=== PATIENT | female | born 1965 | race African-American/Black ===

== ENCOUNTER → 2017-02-17 | Outpatient (CLI) | payer MEDICARE, OTHER ==
[~2017-02-17] MED LIST: FLUT1INH INH; FLUT50SP EACH NARE; HYDR12.57 PO; LISI-515 PO; METR500T10 PO; NAPR500T PO
[2017-02-17 10:02] LABS: BASOPHIL % 0.3 % (0.0-2.0); EOSINOPHIL % 0.8 % (0.0-4.0); HEMATOCRIT 37.2 % (35.0-46.0); HEMO FLAGS DIFF FINAL; LYMPH % 37.2 % (9.0-44.0); LYMPHOCYTE # 1.4 TH/MM3 (1.0-4.8); MEAN CELL VOLUME 93.3 FL (80.0-100.0); MEAN CORPUSCULAR HEMOGLOBIN 31.7 PG (27.0-34.0); MEAN CORPUSCULAR HGB CONC 33.9 % (32.0-36.0); NEUT % 52.7 % (16.0-70.0); PLATELET COUNT 267 TH/MM3 (150-450); RED BLOOD COUNT 3.98 MIL/MM3 (4.00-5.30); RED CELL DISTRIBUTION WIDTH 12.9 % (11.6-17.2); WHITE BLOOD COUNT 3.7 TH/MM3 (4.0-11.0)
[2017-02-17 10:33] LABS: BICARBONATE 27.2 MEQ/L (21.0-32.0); POTASSIUM 3.8 MEQ/L (3.5-5.1)
[2017-02-17 10:34] LABS: RHEUMATOID FACTOR TRIGGER LESS THAN 10.0 IU/ML (0.0-14.9)
== END ==
LOC: CLAB 09:32
PROVIDERS: ATTEND Family Medicine
DX: I10 Essential (primary) hypertension (principal); M25.50 Pain in unspecified joint; E66.9 Obesity, unspecified
CPT/HCPCS: 36415; 80048; 84443; 85025; 86038; 86200; 86430

== ENCOUNTER 2017-05-09 12:43 | Emergency (ER) | payer MEDICARE, MEDICAID ==
[~2017-05-09] VITALS: Ht 152.4 cm; Wt 90.0 kg
[~2017-05-09 12:43] MED LIST changes: +METR-1 PO; -METR500T10 PO
[2017-05-09 12:45] VITALS: BP 167/85; PULSE 127; RESP 20; TEMP 98.2; O2SAT 99
--- NOTE | 2017-05-09 12:54 | PD ---
Physical Exam Time Seen by Provider: 12:54 Narrative 51 y/o female complaining of nausea, a funny feeling in her throat and difficulty breathing. She is also c/o abdominal/L flank pain for the past 2 weeks, worse for [address] Vazquez, she reports she was told that she would undergo an outpatient ct abd/pelvis but this hasn't been performed yet. Vital signs reviewed. Seen at triage desk. Awaiting bed placement. Data Data Last Documented VS Vital Signs Date Time Temp Pulse Resp B/P Pulse Ox O2 Delivery O2 Flow Rate FiO2 05/09/17 12:45 98.2 127 20 167/85 99 MDM Medical Record Reviewed: Yes Supervised Visit with MIGUELANGEL: No Jordon Luque May 09, 2017 12:54
--- NOTE | 2017-05-09 13:51 | PD ---
HPI Chief Complaint: Respiratory Symptoms Time Seen by Provider: 13:27 Travel History International Travel<30 days: No Contact w/Intl Traveler<30days: No Traveled to known affect area: No History of Present Illness HPI Patient is a 51-year-old female presents multiple complaints, chief complaint is that when she takes a new asthma medication her throat feels very sore and her abdomen becomes cramping and nauseous. Patient states the numbness only for the past few weeks as her doctor diagnosed her with asthma recently. She states her shortness of breath is fairly well-controlled. Denies any nausea or vomiting diarrhea or constipation at this time. She states really she only wants to be evaluated for sore throat time. States symptoms started a few minutes after the medicine is given to her. She states that sometimes it feels like his heart swallow as well as. PFSH Past Medical History Anxiety: Yes Cardiovascular Problems: Yes (murmur) High Cholesterol: Yes Diminished Hearing: No Genitourinary: Yes Hypertension: Yes Kidney Stones: Yes Respiratory: Yes Sleep Apnea: Yes Tetanus Vaccination: > 5 Years Influenza Vaccination: No ?: Not : 4 Para: 4 Tubal Ligation: Yes Past Surgical History Gynecologic Surgery: Yes Hysterectomy: Yes (partial) Social History Alcohol Use: No Tobacco Use: No Substance Use: No Allergies-Medications (Allergen,Severity, Reaction): Coded Allergies: Penicillin (Verified Adverse Reaction, Mild, hives, 05/09/17) Hives all over Reported Meds & Prescriptions Reported Meds & Active Scripts Active Fluticasone Nasal [place] 50 Mcg/Act Naspr 100 Mcg EACH NARE BID 50 mcg/spray Hydrochlorothiazide 12.5 Mg Cap 12.5 Mg PO DAILY Lisinopril 20 Mg Tab 20 Mg PO DAILY Reported Breo Ellipta Inh (Fluticasone/Vilanterol) 100-25 Mcg/Act Inh 1 Puff INH DAILY Use daily at the same time. Review of Systems Except as stated in HPI: all other systems reviewed are Neg Physical Exam Narrative GENERAL: Well-nourished, well-developed patient. SKIN: Focused skin assessment warm/dry. HEAD: Normocephalic. EYES: No scleral icterus. No injection or drainage. ENT: Oropharynx clear and moist, TMs clear, neck is supple, no tenderness on swallowing at this time. NECK: Supple, trachea midline. No JVD or lymphadenopathy. CARDIOVASCULAR: Regular rate and rhythm without murmurs, gallops, or rubs. RESPIRATORY: Breath sounds equal bilaterally. No accessory muscle use. GASTROINTESTINAL: Abdomen soft, non-tender, nondistended. MUSCULOSKELETAL: No cyanosis, or edema. BACK: Nontender without obvious deformity. No CVA tenderness. Data Data Last Documented VS Vital Signs Date Time Temp Pulse Resp B/P Pulse Ox O2 Delivery O2 Flow Rate FiO2 05/09/17 14:29 91 19 109/62 98 05/09/17 12:45 98.2 [facility] Medical Decision Making Medical Screen Exam Complete: Yes Emergency Medical Condition: Yes Differential Diagnosis Medication reaction, pharyngitis, nausea, vomiting. Narrative Course Patient roomed emergency department, she appears well and in no distress. Is no indication for advanced workup at this time. Recommend a trial off her medication and discuss with her primary care physician as soon as possible for alternatives. Discussed return to ED criteria. She stable for discharge. Diagnosis Primary Impression: Sore throat Additional Instructions: Call Dr. Vazquez today for further instructions. If you're belly pain becomes severe you can return to the emergency department. Disposition: 01 DISCHARGE HOME Condition: Stable David Rodríguez MD May 09, 2017 13:51
[2017-05-09 14:29] VITALS: BP 109/62
== END 2017-05-09 14:30 | disposition home or self-care (01) ==
LOC: NEPD 12:43
DX: R07.0 Pain in throat (principal); R11.0 Nausea; I10 Essential (primary) hypertension; E78.00 Pure hypercholesterolemia, unspecified; G47.30 Sleep apnea, unspecified; Z86.59 Personal history of other mental and behavioral disorders; Z86.79 Personal history of other diseases of the circulatory system; Z87.448 Personal history of other diseases of urinary system; Z87.09 Personal history of other diseases of the respiratory system
CPT/HCPCS: 99282

== ENCOUNTER → 2017-05-26 | Outpatient (CLI) | payer MEDICARE, MEDICAID ==
[~2017-05-26] MED LIST changes: +ALBUAER3 INH; +ALPR0.25 PO; +LISI10TA3 PO; -METR-1 PO; -NAPR500T PO; +POTA10TA2 PO; +SERT25TA83 PO; +TAMS0.4C4 PO
[2017-05-26 13:57] LABS: BICARBONATE 27.2 MEQ/L (21.0-32.0); POTASSIUM 3.4 MEQ/L (3.5-5.1)
== END ==
LOC: CLAB 12:41
PROVIDERS: ATTEND Family Medicine
DX: N20.0 Calculus of kidney (principal)
CPT/HCPCS: 36415; 80048; 84560; G0463; 99213

== ENCOUNTER 2018-08-21 04:43 | Observation (INO) ==
--- NOTE | 2018-08-21 06:04 | ED ---
HPI General Chief complaint: Extremity Injury, Upper Stated complaint: rt elbow pain Time Seen by Provider: 08/21/18 05:40 History of Present Illness HPI narrative: Patient is a 52 yo female presenting with right arm pain. Patient reports that when she was trying to go to sleep she noticed a sudden achy pain in her right elbow with radiation to her right hand and shoulder. She denies known injury to the elbow. At this time she also was experiencing some right chest pressure but denies SOB. She became concerned about her heart prompting her to seek evaluation. Patient reports that sense arriving at ED the arm pain and chest pain has completely resolved. Additionally she reports feeling bloated, a single episode of emesis, and frequent belching. She reports she has been told she had a heart murmur in the past but denies any other significant cardiac history. Related Data Home Medications Medication Instructions Recorded Confirmed hydrochlorothiazide 12.5 mg PO DAILY 05/25/18 08/21/18 potassium chloride 10 meq PO DAILY 05/25/18 08/21/18 Allergies Allergy/AdvReac Type Severity Reaction Status Date / Time penicillin G AdvReac Mild hives Verified 05/25/18 16:58 Review of Systems Constitutional Denies fever(s) Eyes Denies change in vision ENT Denies headache(s) and Denies nasal congestion Cardiovascular Reports as per HPI and Reports chest pain Respiratory Denies dyspnea Gastrointestinal Denies abdominal pain, Reports belching, Reports bloating, Reports dyspepsia and Reports vomiting Genitourinary Denies difficulty voiding Musculoskeletal Denies myalgias Integumentary/Breasts Denies rash Neurologic Denies headache(s) Psychiatric Denies depression Endocrine Denies polyuria Hematologic/Lymphatic Denies easy bruising PMFSH Medical History Medical History Arthritis (Acute) CHF (congestive heart failure) (Acute) H/O: hysterectomy (Acute) Hypertension (Acute) Sleep apnea (Acute) Surgical History Surgical History H/O tubal ligation (Acute) Social History Social History Substance History: No History of Abuse Second Hand Smoke Exposure: No Smoking Status: Never smoker How Often Do You Have a Drink Containing Alcohol: Never Recent Travel in [facility] within the Last 8 Weeks: No Recent Out of Country Travel within the Last 8 Weeks: No Immunization History Tetanus Immunization: >5 Years Exam Const General: cooperative, comfortable and well developed Nutritional Appearance: well nourished and obese Orientation: alert, awake and oriented x3 HENMT Head: normocephalic and atraumatic Nose: no nasal discharge and no epistaxis Mouth: moist mucous membranes Eyes Sclera: normal sclerae Pupils: PERRL Neck Neck: trachea midline and no JVD Chest Chest: normal palpation of entire chest wall Resp Effort & Inspection: no use of accessory muscles Auscultation: clear to auscultation bilaterally Cardio Rate: regular rate Rhythm: regular rhythm Heart Sounds: no murmurs GI Inspection: non-distended Palpation: soft, no hepatosplenomegaly and nontender Back/Spine/Pelvis Back: no CVA tenderness Skin General: dry skin (warm) Neuro General: alert, awake, oriented x3 and other (Grossly nonfocal.) Speech: speech normal Motor: no movement abnormalities noted Extrem General: normal to inspection, no clubbing, no cyanosis and no edema Psych Mood: congruent mood Affect: normal affect Judgment: judgment good Course Initial Documented Vital Signs Temperature 98.9 F 08/21/18 04:49 Pulse Rate 75 08/21/18 04:49 Respiratory Rate 16 08/21/18 04:49 Blood Pressure 167/84 H 08/21/18 04:49 Pulse Oximetry 98 08/21/18 04:49 Last Documented Vital Signs Temperature 98.9 F 08/21/18 04:49 Pulse Rate 73 08/21/18 06:05 Respiratory Rate 17 08/21/18 06:05 Blood Pressure 159/82 H 08/21/18 06:05 Pulse Oximetry 99 08/21/18 06:05 Medical Decision Making MDM Narrative Medical decision making narrative: I, Dr. Garduno, have reviewed the medical student's documentation, and I am in agreement, met with the patient face to face, made the diagnosis, and the medical decision making was done by me. The patient was initially evaluated by Nicole, the MSIV. Please see their complete history and physical. *My assessment and Findings: The patient presents with a history of awakening at 3:30 AM and at that time noticing she had right arm pain. Patient reports that she attempted to lie back down and then also noted that she was having the chest pain in the right side of her chest. She reports shortly before this she began to have belching. She reports that she took her ranitidine, however she vomited this up. The patient reports that she was concerned that the pain was persisting, therefore she came to the emergency department for evaluation and treatment. The patient reports a history of high blood pressure. She reports that she has had a stress test in the past, approximately 2 years ago. She denies any prior history of coronary artery disease. During the course of the patient's emergency department visit, the patient's history, examination, and differential diagnosis were reviewed with the patient. The patient was placed on a property assessment monitor with oximetry and frequent blood pressure monitoring. The patient had IV access obtained and blood work sent for analysis. The patient was initially provided Aspirin 324mg and nitroglycerin 1 inch the chest wall. The patient's diagnostic studies were reviewed and remarkable for a CBC that shows a white count of 4.4, hemoglobin 13, platelets 246 with monocytes 9.2, PT PTT within normal limits, chemistry is remarkable for The patient's chest x-ray showed no evidence of acute cardiopulmonary disease. The patient's results were discussed with the patient, including the plan of care. I explained that further testing and/ or monitoring is indicated based on the patient's history, examination, and/ or laboratory findings. Therefore, I recommended admission for additional evaluation. The patient expressed understanding and was agreeable with this plan. The patient was admitted to the hospital in stable condition and sent to a bed under the care of the [facility]. Medical Screen Exam Complete: Yes Emergency Medical Condition: Yes Differential Diagnosis Differential Diagnosis: acute coronary syndrome, GERD, arthritic pain, elbow contusion Medical Records Medical records reviewed: Yes I reviewed the patient's medical records. Lab Data Lab results reviewed: Yes I reviewed the patient's lab results. Result diagrams: 08/21/18 06:00 08/21/18 06:00 POC Results POC Urine Results Negative Lab Results 08/21/18 08/21/18 Range/Units 06:00 06:00 WBC 4.4 (4.0-11.0) th/mm3 RBC 4.08 (4.00-5.30) mil/mm3 Hgb 13.0 (11.6-15.3) gm/dL Hct 38.8 (35.0-46.0) % MCV 95.0 (80.0-100.0) fL MCH 31.8 (27.0-34.0) pg MCHC 33.4 (32.0-36.0) % RDW 12.7 (11.6-17.2) % Plt Count 246 (150-450) th/mm3 MPV 7.5 (7.0-11.0) fL Neut % (Auto) 59.9 (16.0-70.0) % Lymph % (Auto) 30.2 (9.0-44.0) % [place] % (Auto) 9.2 H (0.0-8.0) % Eos % (Auto) 0.2 (0.0-4.0) % Baso % (Auto) 0.5 (0.0-2.0) % Neut # (Auto) 2.7 (1.8-7.7) th/mm3 Lymph # (Auto) 1.3 (1.0-4.8) th/mm3 [place] # (Auto) 0.4 (0.0-0.9) th/mm3 Eos # (Auto) 0.0 (0.0-0.4) th/mm3 Baso # (Auto) 0.0 (0.0-0.2) th/mm3 WBC Differential . Differential Comment Auto diff final PT 10.7 (9.8-11.6) sec INR 1.1 Ratio APTT 28.8 (23.4-31.7) sec Imaging Data Radiologist's impression: Chest X-Ray 08/21/18 05:40 CONCLUSION: No acute cardiopulmonary disease identified. ECG Data Attestation: I personally reviewed and interpreted this ECG as follows: Interpretation: The patient had a EKG done on arrival. The patient's EKG reveals a heart rate of 67, QRS duration 98 ms, QTC 413 ms. The patient has T waves that are inverted in lead III, aVF, V1. No acute ST segment elevation. Discharge Plan Discharge Disposition Patient Disposition: 30 Still Patient Discharge Details Diagnosis: Chest pain, rule out acute myocardial infarction Physicians Team ED Provider: Marcelle Garduno Rxs /Orders / Referrals /Forms Prescriptions: No Action potassium chloride 10 mEq Capsule, Extended Release 10 meq PO DAILY RF: 0 hydrochlorothiazide 12.5 mg Capsule 12.5 mg PO DAILY RF: 0 Status ED Status: With Doctor
[2018-08-21 06:13] LABS: Baso % (Auto) 0.5 % (0.0-2.0); Eos % (Auto) 0.2 % (0.0-4.0); Hematocrit 38.8 % (35.0-46.0); Lymph # (Auto) 1.3 th/mm3 (1.0-4.8); Lymph % (Auto) 30.2 % (9.0-44.0); Mean Corpuscular HGB Conc 33.4 % (32.0-36.0); Mean Corpuscular Hemoglobin 31.8 pg (27.0-34.0); Mean Platelet Volume 7.5 fL (7.0-11.0); Mono # (Auto) 0.4 th/mm3 (0.0-0.9); Mono % (Auto) 9.2 % (0.0-8.0); Neut # (Auto) 2.7 th/mm3 (1.8-7.7); Neut % (Auto) 59.9 % (16.0-70.0); Platelet Count 246 th/mm3 (150-450); Red Blood Count 4.08 mil/mm3 (4.00-5.30); Red Cell Distribution Width 12.7 % (11.6-17.2); White Blood Count 4.4 th/mm3 (4.0-11.0)
[2018-08-21 06:22] LABS: Activated Partial Thrombo Time 28.8 sec (23.4-31.7); INR 1.1 Ratio; Prothrombin Time 10.7 sec (9.8-11.6)
--- NOTE | 2018-08-21 06:22 | XR ---
EXAM DATE: 08/21/2018 6:09 AM EST AGE/SEX: 52 years / Female INDICATIONS: Shortness of breath. Right arm pain. CLINICAL DATA: This is the patient's initial encounter. Patient reports that signs and symptoms have been present for 1 day and indicates a pain score of 6/10. MEDICAL/SURGICAL HISTORY: Arthritis. Congestive heart failure. Hypertension. Sleep apnea. H ysterectomy. Tubal ligation. COMPARISON: No prior exams available for comparison. FINDINGS: Single AP view of the chest. The lungs are clear. Cardiomediastinal silhouette within nor mal limits. No evidence of pleural effusion or pneumothorax. CONCLUSION: No acute cardiopulmonary disease identified. Electronically signed by: Scott Amaral MD 08/21/2018 6:21 AM EST
[2018-08-21 06:47] LABS: Albumin 3.6 g/dL (3.4-5.0); Anion Gap 8 meq/L (5-15); Aspartate Aminotransferase 17 U/L (15-37); Blood Urea Nitrogen 16 mg/dL (7-18); Calcium 8.3 mg/dL (8.5-10.1); Carbon Dioxide 26.1 meq/L (21.0-32.0); Chloride 104 meq/L (98-107); Glomerular Filtration Rate Greater Than 89 mL/min (>89); Glucose,Random 104 mg/dL (74-106); Lipase 88 U/L (73-393); Magnesium 1.9 mg/dL (1.5-2.5); Potassium 3.5 meq/L (3.5-5.1); Sodium 138 meq/L (136-145)
[2018-08-21 06:48] LABS: Alanine Aminotransferase 16 U/L (10-53)
[2018-08-21 06:51] LABS: Alkaline Phosphatase 93 U/L (45-117); Creatine Kinase 192 U/L (26-192); Total Protein 7.9 g/dL (6.4-8.2)
[2018-08-21 07:04] LABS: Creatine Kinase MB 1.5 ng/mL (0.5-3.6)
--- NOTE | 2018-08-21 07:56 | P.HPCA ---
History of Present Illness Primary Care Physician: Family [facility] [place] [facility] Chief Complaint: Chest pain History of Present Illness: 52 year old female with history of GERD and sleep apnea presents emergency room for further evaluation of chest pain. Onset 3:30 AM. Discomfort began right shoulder to right elbow with radiation to right anterior chest. Described as aching. Moderate severity. Hurt to move and lay on right side. Associated symptoms including belching. Denied nausea, vomiting, dyspnea, or diaphoresis. Denies similar pain in the past. No relieving factors. Reports recent cardiac testing completed in [place] 3-4 months ago prior to moving to [place]. Is established with [facility] records of recent stress testing reviewed with her at last appointment. Reported to be normal. Past cardiac testing 10/17/2017 Echocardiogram Conclusions: 1. LVEF 60-65%. Normal wall motion. 2. Mild mitral regurgitation. 3. Mild to moderate tricuspid regurgitation. 4. Trivial aortic insufficiency. 5. Mild pulmonary hypertension with SVSP of 43. Social history No known coronary artery disease, diabetes, or hyperlipidemia. Reports history of hypertension in the past, although PCP stopped medication due to blood pressure becoming "too low." Lifelong non-smoker. Denies any alcohol or recreational drug use. Recently moved to [facility]. - Diagnosis (1) Atypical chest pain Review of Systems All other systems reviewed negative except as stated in [facility] - History History Provided By: Patient, Data Systems Analyst / EMT - Medical History Medical History: Medical History (Last Updated 08/21/18 @ 09:08 by CJ Garcia) Anemia H/O: hysterectomy Osteoarthritis Renal calculi Sleep apnea Arthritis CHF (congestive heart failure) Hypertension - Surgical History Surgical History: Surgical History (Last Reviewed 08/21/18 @ 08:28 by CJ Garcia) H/O tubal ligation - Social History I have reviewed the patient's Social History: Yes - Tobacco History Second Hand Smoke Exposure: No Tobacco Use In Past 30 Days: No Smoking Status: Never smoker - Alcohol History How Often Do You Have a Drink Containing Alcohol: Never - Substance Use History Substance History: No History of Abuse - Travel History History of Recent Travel: No Recent Travel in the [place] Within the Last 8 Weeks: No Recent Travel Out of the Country Within the Last 8 Weeks: No - Immunization History Tetanus Immunization: >5 Years Medications and Allergies Active Medications: Active Medications Sodium Chloride (Ns Flush) 2 ml IV.FLUSH UNSCH PRN PRN Reason: FLUSH AFTER USING IV ACCESS Sodium Chloride (Ns Flush) 2 ml IV.FLUSH BID CARLENE Sodium Chloride (Ns Flush) 2 ml IV.FLUSH PRN PRN PRN Reason: FLUSH AFTER USING IV ACCESS Allergies Allergy/AdvReac Type Severity Reaction Status Date / Time penicillin G AdvReac Mild hives Verified 05/25/18 16:58 Home Medications Medication Instructions Recorded Confirmed Type hydrochlorothiazide 12.5 mg PO DAILY 05/25/18 08/21/18 History potassium chloride 10 meq PO DAILY 05/25/18 08/21/18 History Exam Vital signs: Vital Signs 08/21/18 04:49 08/21/18 06:05 08/21/18 06:50 Temperature 98.9 F Pulse Rate 75 73 76 Respiratory Rate 16 17 16 Blood Pressure 167/84 H 159/82 H 133/72 Pulse Oximetry 98 99 100 08/21/18 07:22 Temperature Pulse Rate 83 Respiratory Rate 18 Blood Pressure 138/77 Pulse Oximetry 99 Intake & Output 08/20/18 08/21/18 08/21/18 18:59 06:59 18:59 Weight 90.265 kg Narrative: GENERAL: Alert WN, WD, NAD, extremely pleasant, obese, -[place] female HEAD: NC, AT EYES: Sclera clear, conjunctiva without injection, pupils equal and round ENT: Mucous membranes pink and moist NECK: Supple, no masses, trachea midline CV: RRR, without murmur, rub, gallop, no JVD, S1-S2. RESP: Clear lungs throughout bilateral, no crackles, wheeze, rhonchi, symmetrical chest rise, nonlabored, able to speak in full sentences ABD: Soft, NT, ND, no masses, positive bowel tones EXT: Pulses +2x4, no dependent edema MS: Normal tone x4 extremities, nontender, no obvious deformities, full range of motion NEURO: CN II through CN XII grossly intact, motor strength 5/5 PSYCH: A+O x3, pleasant affect, appropriate speech, appropriate mood, insight and judgment SKIN: Normal turgor, normal texture, no lesions, no rashes, brisk cap refill, even hair distribution Results 08/21/18 06:00 08/21/18 06:00 Cardiac Enzymes 08/21/18 Range/Units 06:00 AST 17 (15-37) U/L CK-MB (CK-2) 1.5 (0.5-3.6) ng/mL Troponin I Less than 0.02 L (0.02-0.05) ng/mL Coagulation 08/21/18 Range/Units 06:00 PT 10.7 (9.8-11.6) sec APTT 28.8 (23.4-31.7) sec CBC 08/21/18 Range/Units 06:00 WBC 4.4 (4.0-11.0) th/mm3 RBC 4.08 (4.00-5.30) mil/mm3 Hgb 13.0 (11.6-15.3) gm/dL Hct 38.8 (35.0-46.0) % Plt Count 246 (150-450) th/mm3 Neut # (Auto) 2.7 (1.8-7.7) th/mm3 Lymph # (Auto) 1.3 (1.0-4.8) th/mm3 [place] # (Auto) 0.4 (0.0-0.9) th/mm3 Eos # (Auto) 0.0 (0.0-0.4) th/mm3 Baso # (Auto) 0.0 (0.0-0.2) th/mm3 Comprehensive Metabolic Panel 08/21/18 Range/Units 06:00 Sodium 138 (136-145) meq/L Potassium 3.5 (3.5-5.1) meq/L Chloride 104 (98-107) meq/L Carbon Dioxide 26.1 (21.0-32.0) meq/L BUN 16 (7-18) mg/dL Creatinine 0.70 (0.50-1.00) mg/dL Calcium 8.3 L (8.5-10.1) mg/dL AST 17 (15-37) U/L ALT 16 (10-53) U/L Alkaline Phosphatase 93 (45-117) U/L Total Protein 7.9 (6.4-8.2) g/dL Albumin 3.6 (3.4-5.0) g/dL Intake and Output 08/20/18 08/21/18 08/21/18 22:59 06:59 14:59 Other: Weight 90.265 kg - Imaging and Cardiology Imaging: Impressions Chest X-Ray 08/21/18 05:40 CONCLUSION: No acute cardiopulmonary disease identified. EKG interpretations - EKG EKG results cardiology: sinus rhythm, normal axis, normal QRS (nonspecific st t) Caprini VTE Risk Assessment Caprini VTE Risk Assessment: No/Low Risk (score <= 1) Caprini Risk Assessment Model: Point Value = 1 Point Value = 2 Point Value = 3 Point Value = 5 Age 41-60 Minor surgery BMI > 25 kg/m2 Swollen legs Varicose veins or History of unexplained or recurrent spontaneous Oral contraceptives or hormone replacement Sepsis (< 1 month) Serious lung disease, including pneumonia (< 1 month) Abnormal pulmonary function Acute myocardial infarction Congestive heart failure (< 1 month) History of inflammatory bowel disease Medical patient at bed rest Age 61-74 Arthroscopic surgery Major open surgery (> 45 min) Laparoscopic surgery (> 45 min) Malignancy Confined to bed (> 72 hours) Immobilizing plaster cast Central venous access Age >= 75 History of VTE Family history of VTE Factor V Leiden Prothrombin [id number] Lupus anticoagulant Anticardiolipin antibodies Elevated serum homocysteine Heparin-induced thrombocytopenia Other congenital or acquired thrombophilia Stroke (< 1 month) Elective arthroplasty Hip, pelvis, or leg fracture Acute spinal cord injury (< 1 month) Prophylaxis Regimen: Total Risk Factor Score Risk Level Prophylaxis Regimen 0-1 Low Early ambulation 2 Moderate Order ONE of the following: *Sequential Compression Device (SCD) *Heparin 5000 units SQ BID 3-4 Higher Order ONE of the following medications: *Heparin 5000 units SQ TID *Enoxaparin/Lovenox 40 mg SQ daily (WT < 150 kg, CrCl > 30 mL/min) *Enoxaparin/Lovenox 30 mg SQ daily (WT < 150 kg, CrCl > 10-29 mL/min) *Enoxaparin/Lovenox 30 mg SQ BID (WT < 150 kg, CrCl > 30 mL/min) AND/OR *Sequential Compression Device (SCD) 5 or more Highest Order ONE of the following medications: *Heparin 5000 units SQ TID (Preferred with Epidurals) *Enoxaparin/Lovenox 40 mg SQ daily (WT < 150 kg, CrCl > 30 mL/min) *Enoxaparin/Lovenox 30 mg SQ daily (WT < 150 kg, CrCl > 10-29 mL/min) *Enoxaparin/Lovenox 30 mg SQ BID (WT < 150 kg, CrCl > 30 mL/min) AND *Sequential Compression Device (SCD) Assessment and Plan - Assessment (1) Atypical chest pain Code(s): R07.89 - Other chest pain Status: Acute Plan: Admitted to chest pain center. Seen and [id number] by Dr. Derek Chacon. Continuing ruling out ACS with 3 sets of EKGs and cardiac enzymes. Will contact patient primary care provider to validate reported recent cardiac testing. If patient recently completed stressing and unremarkable, plan would be to discharge later this morning with follow up with PCP. 0945 Patient has not had recent cardiac testing, but did have recent echocardiogram earlier this year. Discussed with Dr. Chacon. Plan to proceed with Lexiscan, however patient requested to walk on treadmill due to past ill feeling during chemical testing. Lexiscan changed to nuclear exercise testing.
[2018-08-21 10:16] LABS: Creatine Kinase 173 U/L (26-192)
[2018-08-21] MEDS ORDERED: Acetaminophen 325 MG Tablet PO ONE (10:30)
--- NOTE | 2018-08-21 12:13 | ECG ---
Date Performed: 08/21/2018 Time Performed: 06:08:21 PTAGE: 52 years EKG: Sinus rhythm INCOMPLETE RIGHT BUNDLE BRANCH BLOCK MINIMAL VOLTAGE CRITERIA FOR LVH, CONSIDER NORMAL VARIANT BORDE RLINE ECG NO PREVIOUS TRACING DOCTOR: Anderson Vargas Interpretating Date/Time 08/21/2018 12:08:10
--- NOTE | 2018-08-21 14:25 | NM ---
EXAM DATE: 08/21/2018 2:22 PM EST AGE/SEX: 52 years / Female INDICATIONS: Angina. Congestive heart failure Substernal chest pain radiating to right arm. CLINICAL DATA: This is the patient's initial encounter. Patient reports that signs and symptoms have been present for 1 day and indicates a pain score of 6/10. MEDICAL/SURGICAL HISTORY: Hypertension. Gastroesophageal reflux disease. Hysterectomy. COMPARISON: No prior exams available for comparison. DOSE: 8.5 mCi Tc 99m Myoview at rest 25.4 mCi [id number] at stress REST HEART RATE: 102 BPM TARGET HEART RATE: 144 BPM MAX HEART RATE: 144 BPM REST BLOOD PRESSURE: 130/70 mmHg MAX BLOOD PRESSURE: 154/70 mmHg EJECTION FRACTION: 67 % TECHNIQUE: The patient underwent upright treadmill exercise in the chest pain center. Continuous EC G tracing was monitored during stress. Gated SPECT imaging was performed after stress, and conventio nal SPECT imaging was performed at rest. The examination was performed on a SPECT/CT scanner, both a ttenuation-corrected and non-corrected datasets were reviewed. FINDINGS: Distribution: The maximum perfused segment at stress is in the anterolateral wall. Perfusion: The pattern of perfusion at stress is within normal limits. Gated Study: There are intact wall motion and wall thickening without hypokinetic or dyskinetic segme nts. The ejection fraction is calculated at 67%. RISK CATEGORY: Low (<1% Annual Motality Rate) CONCLUSION: 1. No reversible perfusion defects are identified to indicate stress-induced myocardial ischemia. Electronically signed by: Ángel Kwong MD 08/21/2018 2:24 PM EST
--- NOTE | 2018-08-22 07:17 | TR ---
Date Performed: 08/21/2018 Time Performed: 13:24:05 DOCTOR: Colleen Lopez DRUG LIST: CLINICAL HISTORY: CHEST PAIN REASON FOR TEST: REASON FOR ENDING: OBSERVATION: CONCLUSION: Modified uday protocol completed. Modifed grade in stage 1 due to concern patient's inability to walk safely in stage 2. Stopped sec to leg fatigue. Maximum VA=585 % Target HR Achieve d=99.0% Maximum WV=247/70 Total Exercise Time=3:43. Baseline nonspecific st t segment changes. Fair e xercise tolerance. No reprod chest discomfort. No ectopy. Recovery quick and unremarkable. Nuclear im ages pending. No ischemia COMMENTS: No ischemia
--- NOTE | 2018-08-22 07:18 | ECG ---
Date Performed: 08/21/2018 Time Performed: 09:40:12 PTAGE: 52 years EKG: Sinus rhythm INCOMPLETE RIGHT BUNDLE BRANCH BLOCK NONSPECIFIC T-WAVE ABNORMALITY BORDERLINE ECG Since PREVIOUS TRACING , no significant change noted PREVIOUS TRACIN08/21/2018 06.08 DOCTOR: Colleen Lopez Interpretating Date/Time 08/22/2018 07:18:17
== END 2018-08-21 15:20 | disposition home or self-care (01) ==
LOC: NEPE 04:43 → NEDA 04:43 → NEPFCDU 08:07